=== PATIENT | male | born 1965 | race African-American/Black ===

== ENCOUNTER → 2021-04-01 | Outpatient (CLI) | payer OTHER ==
--- NOTE | 2021-04-01 12:25 | MR ---
EXAMINATION TYPE: MR lumbar spine wo con DATE OF EXAM: 04/01/2021 COMPARISON: NONE HISTORY: Low back pain TECHNIQUE: Multiplanar, multisequence imaging of the lumbar spine is performed without IV contrast. FINDINGS: Sagittal images of the lumbar spine show vertebral body heights and alignment to appear sat isfactory. Multilevel disc desiccation with disc space heights are maintained. The conus medullaris is normal in position and signal ending at inferior L1 level. The bone marrow signal intensity is wi thin normal limits. Axial images show T12-L1, L1-L2, and L2-L3 levels appear within normal limits. Axial images at L3-L4 level show mild facet degenerative changes bilaterally. There is mild broad dis c bulge but the spinal canal is preserved. Patent bilateral neural foramina. Axial images at the L4-L5 level show mild facet degenerative changes bilaterally. There is mild to mo derate broad disc bulge but the spinal canal is preserved. Lavy-gv-eaaxgphw bilateral anterior inferi or neural foraminal narrowing is present right greater than left. Axial images at L5-S1 level shows mild facet arthropathy bilaterally. Spinal canal preserved. Patent bilateral neural foramina. Asymmetric thickening of the left adrenal gland is felt present axial image 32. 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
== END | disposition home or self-care (01) ==
LOC: RADMRIMAIN 11:06
PROVIDERS: ATTEND Orthopaedic Surgery
DX: M47.817 Spondylosis without myelopathy or radiculopathy, lumbosacral region (principal); M48.061 Spinal stenosis, lumbar region without neurogenic claudication
CPT/HCPCS: 72148